=== PATIENT | male | born 1945 | race Caucasian/White ===

== ENCOUNTER 2017-10-04 11:52 | Outpatient (CLI) | payer MEDICARE, OTHER ==
--- NOTE | 2017-10-04 14:54 | CT ---
CT BRAIN WITH AND WITHOUT CONTRAST: 10/04/2017 HISTORY: A 71-year-old male with C34.2 malignant neoplasm of middle lobe, bronchus lung, stage IV. Evaluation for brain metastases. TECHNIQUE: Precontrast scan of brain IV injection iodinated contrast media: 70 mL of Isovue 370 Postcontrast scan of brain FINDINGS: The ventricles are normal in size and configuration. There is no midline shift or any other mass eff ect. There is no evidence of acute intracranial hemorrhage, large cortical infarct, or extraaxial fl uid collection. The dailey matter /white matter differentiation is maintained. There is no abnormal e nhancement or mass. The calvarium is intact. The tympanomastoid cavities, and the upper portions of the paranasal sinuses included in these images, are grossly clear. IMPRESSION: Normal. tonja [] POS: TERI
[2017-10-04] MEDS ORDERED: Iopamidol 370 76% 100 ML VIAL ONE (17:05)
== END 2017-10-04 11:53 | disposition home or self-care (01) ==
LOC: CT 11:52
PROVIDERS: ATTEND Internal Medicine Medical Oncology
DX: C34.2 Malignant neoplasm of middle lobe, bronchus or lung (principal)
CPT/HCPCS: 70470

== ENCOUNTER 2017-10-13 12:30 | Outpatient (CLI) | payer MEDICARE, OTHER | END 2017-10-13 12:31 | disposition home or self-care (01) | LOC: BICRAD 12:30 | PROVIDERS: ATTEND Internal Medicine Medical Oncology | DX: C34.90 Malignant neoplasm of unspecified part of unspecified bronchus or lung (principal); J98.4 Other disorders of lung | CPT/HCPCS: 71020 ==

== ENCOUNTER 2017-10-28 08:46 | Outpatient (CLI) | payer MEDICARE, OTHER ==
--- NOTE | 2017-10-29 08:48 | PET ---
PET CT: HISTORY: 71-year-old male with lung cancer. Exam requested for initial staging. TECHNIQUE: PET scanning with CT attenuation correction was performed from the base of the brain through the prox imal thighs following the intravenous administration of 8.5 mCi [id number] in the right antecubital chucho a. Imaging performed with an uptake interval of 46 minutes. FINDINGS: Correlation is made with CT of chest, abdomen, and pelvis dated 09/23/17 from [facility]. Hypermetabolic lymph nodes are seen in the mediastinum with a maximum SUV of 3.4 in the subcarinal re gion, 3.0 in the right hilum, and 3.6 in the right supraclavicular lymph node. Hypermetabolic activit y is seen in the periportal lymph nodes with a SUV of 4.5. Numerous hypermetabolic liver lesions are seen with a maximum SUV of 17.7 in the anterior segment of the right lobe, 16.7 in the posterior segment of the right lobe, and 18.3 in the left lobe of the rosemary er. There are multiple hypermetabolic osseous lesions with a SUV of 5.8 in the left sacral ala, 4.2 at T9 , 2.9 at T3, 3.0 at T1, and 3.7 in the left scapula. No hypermetabolic adrenal lesions are seen. The CT scan used for attenuation correction demonstrates a tiny right pleural effusion. No ascites is noted. A tiny, nonobstructing left renal calculus is present. There is sigmoid diverticulosis. IMPRESSION: Findings are consistent with extensive metastatic disease. POS: TERI
== END 2017-10-28 08:47 | disposition home or self-care (01) ==
LOC: PET 08:46
PROVIDERS: ATTEND Internal Medicine Medical Oncology
DX: C34.2 Malignant neoplasm of middle lobe, bronchus or lung (principal)
CPT/HCPCS: 78815; A9552

== ENCOUNTER 2017-12-07 05:55 | Day surgery (SDC) | payer MEDICARE, OTHER ==
[2017-12-06 12:35] VITALS: BMI 26.7
[2017-12-07] MEDS ORDERED: CEFAZOLIN/Water 2 GM/20 ML SYRINGE ONE (06:16)
[2017-12-07] MEDS ORDERED: Lidocaine 2% w/Epinephrine 1:200K 20 ML VIAL ONE (06:50)
[2017-12-07] MEDS ORDERED: Bupivacaine 0.25% HCL 30 ML VIAL ONE (06:50)
[2017-12-07] MEDS ORDERED: Heparin 0 ML ONE (06:50)
[2017-12-07] MEDS ORDERED: Fentanyl 100 MCG/2 ML VIAL ONE (07:07)
[2017-12-07] MEDS ORDERED: Propofol 500 MG/50 ML VIAL ONE (07:15)
--- NOTE | 2017-12-07 08:47 | OP ---
DATE OF PROCEDURE: 12/07/2017 PREOPERATIVE DIAGNOSIS: Lung cancer. POSTOPERATIVE DIAGNOSIS: Lung cancer. PROCEDURE: Tunneled central line with subcutaneous port (MediPort), CT injectable. SURGEON: Forest Neves M.D. ANESTHESIA: TIVA, local. ESTIMATED BLOOD LOSS: Minimal. COMPLICATIONS: None. SPECIMEN: None. FINDINGS: Tip of catheter at atriocaval junction. TECHNIQUE: The patient was taken to the operating room and placed supine on the operating room table . After sedation was obtained, bilateral neck and chest was shaved, prepped and draped in a sterile fashion. Local anesthetic infiltrated over the right internal jugular vein and in the right upper ch est. Intrajugular vein cannulated using a 22-gauge finder needle followed by a Seldinger needle. Wi re was passed into the superior vena cava under fluoroscopic guidance. A jose was made at the wire e ntrance site. A separate 3-cm incision was made in the right upper chest. Subcutaneous pocket made below the lower incision. Tubing for the MediPort tunneled from the inferior to superior incision. Introducer sheath was placed over the wire into the superior vena cava under fluoroscopic guidance. The dilator and wire were removed. The end of the catheter is spread into the sheath as the sheath i s peeled away. The tip of the catheter was at the atriocaval junction. The MediPort tubing is cut t o fit the MediPort at the lower incision, connected to the MediPort. The MediPort sewn to the chest wall in the subcutaneous pocket using Prolene. The MediPort flushes and draws blood without difficul ty. It is flushed with a heparin saline. The wound was irrigated and closed using 3-0 Monocryl, 4-0 Monocryl, and Dermabond. The patient went to recovery in stable condition. All instrument counts, needle counts, and lap counts were correct.
--- NOTE | 2017-12-07 08:50 | RAD ---
RADIOGRAPH CHEST 1 VIEW: Date: 12-07-17 Time: 8:26 a.m. HISTORY: 71-year-old male status post Mediport placement. COMPARISON: None. FINDINGS: There is a right IJ Mediport with distal tip overlying the mid to lower portion of the SVC. No eviden ce of pneumothorax. There is a dense, moderately large opacity in the right mid-lower lung field. No cardiomegaly or pulmonary vasculature engorgement. No pulmonary edema. Lateral costophrenic angles ar e sharp. No pneumothorax. ACDF hardware in the cervical spine. Sternotomy wires. Left subclavian pace maker. IMPRESSION: 1. Right internal jugular implantable vascular access port without pneumothorax. 2. Dense pulmonary opacity in the right mid/lower lung field. 3. Pacemaker. 4. Status post coronary artery bypass graft surgery is evidence of chronic atherosclerotic disease. SWATHI POS: TERI
--- NOTE | 2017-12-07 15:59 | EKG ---
Test Reason : PREOP Blood Pressure : / mmHG Vent. Rate : 070 BPM Atrial Rate : 070 BPM P-R Int : 150 ms QRS Dur : 078 ms QT Int : 402 ms P-R-T Axes : 034 004 030 degrees QTc Int : 434 ms Electronic atrial pacemaker Nonspecific T wave abnormality Abnormal ECG No previous ECGs available Confirmed by SARITA DURAN ([id number]) on 12/07/2017 3:58:06 PM Referred By: MARVIN Confirmed By:SARITA DURAN
[2017-12-07] MEDS ORDERED: Ondansetron HCl/PF 4 MG/2 ML Vial ONE (16:30)
[2017-12-07] MEDS ORDERED: PHENYLEPHRINE-NS 100 MCG/ML 10 ML SYRINGE ONE (16:30)
== END 2017-12-07 09:28 | disposition home or self-care (01) ==
LOC: SDC 05:55
PROVIDERS: ATTEND Surgery
PROC: 0JH Subcutaneous Tissue and Fascia, Insertion (ICD-10-PCS; principal; 2017-12-07)
DX: C34.90 Malignant neoplasm of unspecified part of unspecified bronchus or lung (principal); I10 Essential (primary) hypertension; E78.5 Hyperlipidemia, unspecified; I25.10 Atherosclerotic heart disease of native coronary artery without angina pectoris; I48.91 Unspecified atrial fibrillation; G47.30 Sleep apnea, unspecified; D64.9 Anemia, unspecified; C78.7 Secondary malignant neoplasm of liver and intrahepatic bile duct; C79.51 Secondary malignant neoplasm of bone; C79.89 Secondary malignant neoplasm of other specified sites; C77.1 Secondary and unspecified malignant neoplasm of intrathoracic lymph nodes; Z98.1 Arthrodesis status; Z95.1 Presence of aortocoronary bypass graft; Z95.0 Presence of cardiac pacemaker; Z96.1 Presence of intraocular lens; Z90.49 Acquired absence of other specified parts of digestive tract; Z98.890 Other specified postprocedural states; Z87.01 Personal history of pneumonia (recurrent); Z87.891 Personal history of nicotine dependence
CPT/HCPCS: 71045; 93005; 93010; C1788; J1642; J1644; J2405; J2704; J3010; S0020

== ENCOUNTER 2017-12-13 17:33 | Inpatient (IN) | payer MEDICARE, OTHER ==
[2017-12-13 18:11] LABS: Hemoglobin 9.8 g/dL (14.0-18.0); Mean Corpuscular HGB CONC 30.8 g/dL (32.0-36.0); Mean Corpuscular Hemoglobin 26.3 pg (27.0-31.0); Mean Corpuscular Volume 85.3 fl (80.0-94.0); Mean Platelet Volume 6.6 fL (7.4-10.4); Platelet Count 323 thou/uL (130-400); RBC Distribution Width 21.9 % (11.5-14.5); Red Blood Cell (RBC) Count 3.72 mill/uL (4.70-6.10); White Blood Cell (WBC) Count 17.6 thou/uL (4.8-10.8)
[2017-12-13 18:29] LABS: ALT (SGPT) 20 U/L (8-55); AST (SGOT) 24 U/L (5-34); Albumin 3.2 g/dL (3.4-4.8); Alkaline Phosphatase 208 U/L (40-150); Anion Gap 15 mmol/L (10-20); BUN (Urea Nitrogen) 40 mg/dL (8.4-25.7); Bilirubin, Total 0.5 mg/dL (0.2-1.2); Calc. Creatinine Clearance 0 mL/min (70-130); Calcium 9.1 mg/dL (7.8-10.44); Carbon Dioxide 23 mmol/L (23-31); Chloride 104 mmol/L (98-107); Estimated GFR-MDRD 42; Globulin 3.8 g/dL (2.4-3.5); Glucose 65 mg/dL (80-115); Potassium 4.6 mmol/L (3.5-5.1); Sodium 137 mmol/L (136-145)
[2017-12-13 18:30] LABS: Anisocytosis MODERATE=16-30 cells (100X) (0-5/hpf); Band 18 % (5-11); Eosinophils 20 % (0-10); Hypochromia SLIGHT = 6-15 cells (100X) (0-5/hpf); Lymphocytes 17 % (21-51); MDiff Complete? YES; Monocytes 1 % (0-10); Neutrophil 40 % (42-75); Ovalocytes SLIGHT = 2-5 cells (100X) (0-1/hpf); PLT Morphology Comment Appears Adequate; Polychromasia SLIGHT = 2-3 cells (100X) (0-2/hpf); Reactive Lymphocytes 3 % (0-10); Toxic Granulation SLIGHT; Vacuoles SLIGHT
[2017-12-13] MEDS ORDERED: Piperacillin/Tazobactam 3.375 GM in Sodium Chloride 0.9% 100 ML IVPB SCH (18:45)
--- NOTE | 2017-12-13 19:01 | RAD ---
CHEST ONE VIEW: History: Chest Pain. Sepsis. Comparison: 12-07-17 FINDINGS: Cardiac silhouette is magnified by projection. Pulmonary vasculature is unremarkable. Lungs are hyper inflated. Mediastinum is midline with aortic calcification, post-operative changes, a dual-lead left subclavian cardiac electronic device and a right internal jugular Mediport. Dense parenchymal opacity at the right lower lobe is unchanged in appearance from the previous exam. IMPRESSION: 1. Right lower lobe infiltrate is stable. Other findings are also stable. POS: TERI
[2017-12-13 20:17] LABS: Bilirubin Negative (Negative); Blood, Urine Negative (Negative); Clarity CLOUDY (Clear); Glucose, Urine (Dipstick) Negative (Negative); Leukocyte Negative (Negative); Nitrite Negative (Negative); Protein, Urine (Dipstick) Trace mg/dL (Neg-Trace); Specific Gravity, Urine 1.026 (1.002-1.036); Urobilinogen 0.2 mg/dL (0.2-1.0)
[2017-12-13] MEDS ORDERED: Guaifenesin DM 100-10/5 ML UDCUP PO PRN (22:08)
[2017-12-13] MEDS ORDERED: Fleet Enema 133 ML BOT PR PRN (22:08)
[2017-12-13] MEDS ORDERED: Milk Of Magnesia 30 ML UDCUP PO PRN (22:08)
[2017-12-13] MEDS ORDERED: Ondansetron HCl/PF 4 MG/2 ML Vial IVP PRN (22:08)
[2017-12-13] MEDS ORDERED: HYDROcodone/Acetaminophen 5/325 mg Tablet PO PRN (22:08)
[2017-12-13] MEDS ORDERED: Acetaminophen 325 MG TAB PO PRN (22:08)
[2017-12-13] MEDS ORDERED: Albuterol Sulfate 2.5 mg/3 ml Neb NEB PRN (22:11)
[2017-12-13 22:29] LABS: Lactic Acid 0.9 mmol/L (0.5-2.2)
[2017-12-14 02:55] VITALS: BMI 25.8
[2017-12-14] MEDS ORDERED: Ondansetron ODT 8 MG TAB PO PRN (04:59)
[2017-12-14] MEDS ORDERED: HYDROcodone/Acetaminophen 10/325 mg Tablet PO PRN (04:59)
[2017-12-14] MEDS ORDERED: Naproxen 500 MG TAB PO PRN (04:59)
[2017-12-14] MEDS ORDERED: Nitroglycerin 0.4 MG TAB (25 Tab Bottle) SL PRN (04:59)
[2017-12-14 06:41] LABS: ALT (SGPT) 18 U/L (8-55); AST (SGOT) 21 U/L (5-34); Albumin 2.7 g/dL (3.4-4.8); Alkaline Phosphatase 178 U/L (40-150); Anion Gap 11 mmol/L (10-20); BUN (Urea Nitrogen) 35 mg/dL (8.4-25.7); Bilirubin, Total 0.3 mg/dL (0.2-1.2); Calc. Creatinine Clearance 51 mL/min (70-130); Calcium 8.6 mg/dL (7.8-10.44); Carbon Dioxide 23 mmol/L (23-31); Chloride 107 mmol/L (98-107); Estimated GFR-MDRD 44; Globulin 3.2 g/dL (2.4-3.5); Glucose 93 mg/dL (83-110); Protein, Total 5.9 g/dL (5.8-8.1); Sodium 137 mmol/L (136-145)
[2017-12-14 06:44] LABS: Hemoglobin 8.2 g/dL (14.0-18.0); Mean Corpuscular HGB CONC 30.6 g/dL (32.0-36.0); Mean Platelet Volume 6.8 fL (7.4-10.4); Platelet Count 272 thou/uL (130-400); Red Blood Cell (RBC) Count 3.13 mill/uL (4.70-6.10); White Blood Cell (WBC) Count 20.2 thou/uL (4.8-10.8)
[2017-12-14 06:45] LABS: Band 8 % (5-11); Eosinophils 20 % (0-10); Hypochromia SLIGHT = 6-15 cells (100X) (0-5/hpf); Lymphocytes 24 % (21-51); MDiff Complete? YES; Microcytosis SLIGHT = 6-15 cells (100X) (0-5/hpf); Monocytes 3 % (0-10); Neutrophil 43 % (42-75); PLT Morphology Comment Appears Adequate
--- NOTE | 2017-12-14 06:49 | HP ---
PRIMARY CARE PHYSICIAN: Jasvir Nicholas MD PRESENTING COMPLAINT: Shortness of breath. HISTORY OF PRESENT ILLNESS: A 71-year-old male with a history of lung cancer, CAD status post CABG, status post pacemaker placement, and atrial fibrillation who presented to the emergency room today af ter he developed fevers, chills, shortness of breath just after he finished his dose of chemotherapy today, patient was at the infusion center getting Opdivo and he reports that immediately after his se ssion after and after the nurse discontinued the port and flushed it, he developed fever, chills, and rigors as well as shortness of breath. He was given Tylenol and Benadryl immediately. There was no chest pain, palpitations, nausea, vomiting, or diarrhea. He received Opdivo about 2 weeks ago and t olerated it well. His MediPort was placed about a week ago as well. His reported that they wer e told shortness of breath is the side effect of the medication. He was also diagnosed with pneumoni a in September. Around the same time, he was diagnosed with his lung cancer. PAST MEDICAL HISTORY: Non-small cell cancer of the lungs, CAD, atrial fibrillation, status post pace maker. PAST SURGICAL HISTORY: Cholecystectomy, CABG, vertebral fusion, and rotator cuff surgery. FAMILY HISTORY: Reviewed and noncontributory. SOCIAL HISTORY: Former smoker, does not drink alcohol, or use illicit drugs. ALLERGIES: None. CODE STATUS: FULL CODE. REVIEW OF SYSTEMS: Constitutional: Fever or chills. HEENT: Negative. Cardiovascular: Negative. Respiratory: Shortness of breath. GI: Negative. Musculoskeletal: Negative. Skin: Negative. N eurologic: Negative. Endocrine: Negative. Hematological/lymph: Negative. Psychiatric: Negative . PHYSICAL EXAMINATION: VITAL SIGNS: At the emergency room, blood pressure 104/48, pulse 80, respiratory rate 20, oxygen sat uration 95% on 2 liters. CONSTITUTIONAL: Not in acute distress, is lying down comfortably in bed. HEENT: Normocephalic, atraumatic. Not pale, anicteric. PERRLA, EOMI. Moist mucous membranes. NECK: Supple, full range of movement. RESPIRATORY: Vesicular breath sounds bilaterally on 2 liters of oxygen via nasal cannula. No wheeze s or rales. CARDIOVASCULAR: Irregularly irregular rhythm, but regular rate. No murmurs, rubs, or gallops. ABDOMEN: Not tender, not distended. Bowel sounds positive. No organomegaly. MUSCULOSKELETAL: No skeletal abnormalities. NEUROLOGIC: Alert and well oriented to time, person, and place. No focal deficits. SKIN: Warm, dry, well-perfused. Right chest port in place. PSYCHIATRIC: Normal mood and affect. LABORATORY DATA: EKG paced rhythm. Chest x-ray right lower lobe infiltrates, which is stable. Ches t x-ray from 12/07/2017 that showed a dense pulmonary opacity in the right mid/lower lung field. WBC 17,600. Serum chemistry with BUN/creatinine of 40/1.63 which seems to be patient's baseline crea tinine. Initial lactic acid was 2.7, which reduced was 0.9 with hydration. Urinalysis was unremarka ble. Blood cultures were taken and is pending. ASSESSMENT AND PLAN: 1. Shortness of breath. This is likely a side effect of Opdivo as it has been shown to cause respir atory failure, pneumonitis, and navel pneumonia. He has an elevated WBC count and is currently requi ring oxygen supplementation. We will follow up blood cultures, placed on nebulizer therapy and broad spectrum antibiotics as a precaution. Will evaluate the patient in the morning. Discontinue antibi otics might then be considered. 2. Atrial fibrillation. He is currently rate controlled. For this, he takes apixaban, atenolol, an d digoxin. We will continue these medications as soon as they are confirmed. He is also on sotalol. 3. Hypertension. We will resume his home regimen gradually. He takes amlodipine, atenolol, and los andreia. 4. Coronary artery disease, status post CABG and pacemaker placement. He is currently chest pain fr ee. We will resume him on atorvastatin, digoxin, furosemide, losartan, and his p.r.n. nitroglycerin once they have been confirmed. 5. Non-small cell lung cancer to continue outpatient chemotherapy and follow up with Oncology.
[2017-12-14] MEDS: Piperacillin/Tazobactam 3.375 GM in Sodium Chloride 0.9% 100 ML IVPB SCH ×4 (07:27→23:29)
[2017-12-14] MEDS: Famotidine 20 MG TAB PO SCH ×2 (08:46→20:50)
[2017-12-14] MEDS: Losartan 25 MG TAB PO SCH (08:46)
[2017-12-14] MEDS: Fish Oil 1,000 MG CAP PO SCH ×2 (08:47→20:50)
[2017-12-14] MEDS: Atenolol 25 MG TAB PO SCH (08:47)
[2017-12-14] MEDS: Aspirin 81 mg Enteric Coated Tablet PO SCH (08:47)
[2017-12-14] MEDS: Digoxin 0.125 MG TAB PO SCH (08:48)
[2017-12-14] MEDS ORDERED: Furosemide 40 MG TAB PO SCH (09:00)
[2017-12-14] MEDS: Modafinil 100 MG TAB PO SCH (09:58)
[2017-12-14] MEDS: Stress 600 With Zinc 1 TAB PO SCH (09:58)
[2017-12-14] MEDS: Vancomycin HCl 1.5 GM in Sodium Chloride 0.9% 250 ML 300 ML IVPB SCH (12:25)
--- NOTE | 2017-12-14 13:50 | PDOC.PN ---
- Subjective Encounter Start Date: 12/14/17 Encounter Start Time: 12:40 -: old records requested/rev Pt seen and examined, chart reviewed in its entirety, this is my first visit with this patient No F/C, no N/V/D/C, no CP, no SOB Pt feeling much better, no acute events overnight, no new complaints. Labs and findings discussed with pt and at the bedside 10 point ROS performed and neg for all systems except as per HPI - Objective MAR Reviewed: Yes Vital Signs & Weight: Vital Signs (12 hours) Temp Pulse Resp BP BP Pulse Ox 12/14/17 08:48 70 12/14/17 08:47 70 129/63 12/14/17 08:05 98.4 F 70 18 129/63 97 12/14/17 08:00 98.4 F 70 18 98 12/14/17 04:00 98.8 F 70 18 128/66 97 Weight Weight 185 lb 3.013 oz I&O: 12/13/17 12/14/17 12/15/17 06:59 06:59 06:59 Intake Total 480 240 Balance 480 240 Result Diagrams: 12/14/17 06:15 12/14/17 03:30 Additional Labs: Accuchecks 12/13/17 20:44 POC Glucose 112 H Radiology Reviewed by me: Yes EKG Reviewed by me: Yes Phys Exam - Physical Examination Constitutional: NAD HEENT: PERRLA, moist MMs, sclera anicteric, oral pharynx no lesions Neck: no nodes, no JVD, supple, full ROM Respiratory: no wheezing, no rales, no rhonchi, clear to auscultation bilateral Cardiovascular: RRR, no significant murmur, no rub Gastrointestinal: soft, non-tender, no distention, positive bowel sounds Musculoskeletal: no edema, pulses present Neurological: non-focal, normal sensation, moves all 4 limbs Lymphatic: no nodes Psychiatric: normal affect, A&O x 3 Skin: no rash, normal turgor, cap refill <2 seconds Deviation from normal: PAC site C/D/I Dx/Plan (1) Lung cancer Code(s): C34.90 - MALIGNANT NEOPLASM OF UNSP PART OF UNSP BRONCHUS OR LUNG Status: Acute Qualifiers: Laterality: unspecified laterality Lung location: unspecified part of lung Qualified Code(s): C34.90 - Malignant neoplasm of unspecified part of unspecified bronchus or lung (2) Effect of chemotherapy Code(s): T45.1X5A - ADVERSE EFFECT OF ANTINEOPLASTIC AND IMMUNOSUP DRUGS, INIT Status: Acute Qualifiers: Encounter type: initial encounter Qualified Code(s): T45.1X5A - Adverse effect of antineoplastic and immunosuppressive drugs, initial encounter Comment: fevers, chills, SOB at conclusion of second dose of Opdivo. Onc to see (3) Sepsis Code(s): A41.9 - SEPSIS, UNSPECIFIED ORGANISM Status: Acute Qualifiers: Sepsis type: sepsis due to unspecified organism Qualified Code(s): A41.9 - Sepsis, unspecified organism Comment: unsure if infectious or adverse reaction to Chemo agent (4) Dyspnea Code(s): R06.00 - DYSPNEA, UNSPECIFIED Status: Acute Qualifiers: Dyspnea type: shortness of breath Qualified Code(s): R06.02 - Shortness of breath; R06.00 - Dyspnea, unspecified; R06.01 - Orthopnea (5) CKD (chronic kidney disease) stage 3, GFR 30-59 ml/min Code(s): N18.3 - CHRONIC KIDNEY DISEASE, STAGE 3 (MODERATE) Status: Chronic (6) CAD (coronary artery disease) Code(s): I25.10 - ATHSCL HEART DISEASE OF [place] CORONARY ARTERY W/O ANG PCTRS Status: Chronic Qualifiers: Coronary Disease-Associated Artery/Lesion type: unspecified vessel or lesion type [place] vs. transplanted heart: [place] heart Associated angina: without angina Qualified Code(s): I25.10 - Atherosclerotic heart disease of [place] coronary artery without angina pectoris - Plan * .
--- NOTE | 2017-12-14 18:29 | CON ---
DATE OF CONSULTATION: 12/14/2017 REASON FOR CONSULTATION: Lung cancer. HISTORY OF PRESENT ILLNESS: Mr. Estevez is a pleasant 72-year-old gentleman with adenocarcinoma with li duarte lung origin. He has mets to the liver, mediastinum and lymph nodes. He recently progressed on carboplatin and Alimta. Yesterday in the clinic, he was receiving his second dose of immunotherapy w ith Opdivo. Towards the end of administration, he began to have rigors and shortness of breath. He was given Tylenol and Benadryl, but did not improve, so he was brought to the emergency room for furt her evaluation. He did receive a first dose of Opdivo several weeks ago without any complication. H e states over the last few days prior to yesterday he was having some increased shortness of breath, but denies any fever, chills, or night sweats. Once in the ER, his symptoms resolved and have not re turned. He has been pancultured and started on empiric antibiotics and IV fluids. PAST MEDICAL HISTORY: 1. Adenocarcinoma. 2. Hyperlipidemia. 3. Hypertension. 4. Atherosclerotic heart disease. 5. Arthritis. PAST SURGICAL HISTORY: 1. Triple bypass surgery. 2. Cervical fusion. 3. Pacemaker. 4. Rotator cuff repair. 5. Cholecystectomy. 6. Back ablation. ALLERGIES: No known drug allergies. HOME MEDICATIONS: 1. Amlodipine 2.5 mg daily. 2. Aspirin 81 mg daily. 3. Atenolol 25 mg daily. 4. Atorvastatin 40 mg daily. 5. Digoxin 125 mcg daily. 6. Fenofibrate 145 mg daily. 7. Lasix 40 mg daily. 8. Skytop p.r.n. 9. Losartan 25 mg daily. 10. Modafinil 200 mg daily. 11. Lovaza 1 capsule daily. 12. Sotalol 80 mg daily. 13. B complex daily. FAMILY HISTORY: Mother had colon cancer. SOCIAL HISTORY: , has 2 children, lives with his spouse. He is a 25 pack per year smoker. N o alcohol or illicit drug use. REVIEW OF SYSTEMS: Twelve point review of systems is negative except for noted in HPI. PHYSICAL EXAMINATION: VITAL SIGNS: Temperature is 98.4, pulse is 70, respiratory rate is 18, and blood pressure is 129/63. He is 97% on 2 liters. GENERAL: Well-developed, well-nourished male in no acute distress. HEENT: Normocephalic, atraumatic. Pupils are equal and reactive to light. NECK: Supple. CARDIOVASCULAR: Regular rate and rhythm. LUNGS: His lungs are clear throughout. ABDOMEN: Soft, nontender, bowel sounds are positive. EXTREMITIES: No clubbing, cyanosis or edema. SKIN: No rash. HEMATOLOGIC: No petechia or purpura. NEUROLOGIC: Nonfocal. PSYCHIATRIC: The patient is alert, oriented and appropriate. PERTINENT LABORATORY AND X-RAYS: Current WBCs are 20.2, hemoglobin 8.2, hematocrit 26.6, platelet co unt is 272,000, 43% neutrophils, 8% bands, 24% lymphocytes, 20% eosinophils. Sodium is 137, potassiu m is 4.0, chloride is 107, CO2 is 23, BUN is 35, and creatinine 1.57. Lactic acid is 0.9, calcium is 8.6, total bilirubin is 0.3, AST is 21, ALT is 18, alkaline phosphatase is 178, BNP is 156, serum to marko protein is 5.9, albumin is 2.7, and globulin is 3.9. Urine was negative for bacteria. Chest x-r ay showed a right lower lobe infiltrate. ASSESSMENT: 1. Adenocarcinoma with lung primary, status post cycle 2 of Opdivo. 2. Rigors and chills, allergic reaction versus drug reaction. DISCUSSION: The patient has recovered from his episode from yesterday. He has been pancultured and they are currently pending. It is unclear if this was a drug reaction or the patient had infection a nd reacted to stimulation of his immune system. Regardless, he is feeling better now, I will plan to wean O2. Continue antibiotics and hopefully home in the next 24 hours. He will follow up with Dr. Llanes to discuss likely continuation of Opdivo in the outpatient setting. Thank you for this consult.
[2017-12-14] MEDS ORDERED: diphenhydrAMINE 25 MG CAP PO PRN (19:43)
[2017-12-14] MEDS ORDERED: Fenofibrate Nanocrystallized 145 MG TAB PO SCH (21:00)
[2017-12-14] MEDS ORDERED: Atorvastatin Calcium 40 MG TAB PO SCH (21:00)
[2017-12-15] MEDS: Piperacillin/Tazobactam 3.375 GM in Sodium Chloride 0.9% 100 ML IVPB SCH ×2 (05:35→13:50)
[2017-12-15 06:22] LABS: ALT (SGPT) 15 U/L (8-55); AST (SGOT) 17 U/L (5-34); Albumin 2.7 g/dL (3.4-4.8); Alkaline Phosphatase 159 U/L (40-150); Anion Gap 10 mmol/L (10-20); BUN (Urea Nitrogen) 26 mg/dL (8.4-25.7); Bilirubin, Total 0.4 mg/dL (0.2-1.2); Calc. Creatinine Clearance 52 mL/min (70-130); Calcium 8.7 mg/dL (7.8-10.44); Carbon Dioxide 24 mmol/L (23-31); Chloride 108 mmol/L (98-107); Estimated GFR-MDRD 44; Globulin 3.1 g/dL (2.4-3.5); Glucose 97 mg/dL (83-110); Magnesium 1.8 mg/dL (1.6-2.6); Potassium 4.1 mmol/L (3.5-5.1); Protein, Total 5.8 g/dL (5.8-8.1); Sodium 138 mmol/L (136-145)
[2017-12-15 07:01] LABS: #Basophils 0.1 thou/uL (0.0-0.2); #Eosinphils 4.3 thou/uL (0.0-0.7); #Lymphocytes 3.3 thou/uL (1.20-3.40); #Neutrophils 11.7 thou/uL (1.40-6.50); %Basophils 0.7 % (0.0-1.0); %Lymphocytes 16.2 % (21.0-51.0); %Monocytes 5.1 % (0.0-10.0); %Neutrophils 57.1 % (42.0-75.0); Band 11 % (5-11); Eosinophils 14 % (0-10); Lymphocytes 18 % (21-51); MDiff Complete? YES; Mean Corpuscular HGB CONC 31.3 g/dL (32.0-36.0); Mean Corpuscular Hemoglobin 26.8 pg (27.0-31.0); Mean Corpuscular Volume 85.5 fl (80.0-94.0); Mean Platelet Volume 6.7 fL (7.4-10.4); Monocytes 4 % (0-10); Neutrophil 53 % (42-75); PLT Morphology Comment Appears Adequate; Platelet Count 305 thou/uL (130-400); RBC Distribution Width 21.6 % (11.5-14.5); Red Blood Cell (RBC) Count 2.98 mill/uL (4.70-6.10); White Blood Cell (WBC) Count 20.5 thou/uL (4.8-10.8)
[2017-12-15] MEDS: Digoxin 0.125 MG TAB PO SCH (08:48)
[2017-12-15] MEDS: Losartan 25 MG TAB PO SCH (08:48)
[2017-12-15] MEDS: Fish Oil 1,000 MG CAP PO SCH (08:48)
[2017-12-15] MEDS: Famotidine 20 MG TAB PO SCH (08:49)
[2017-12-15] MEDS: Aspirin 81 mg Enteric Coated Tablet PO SCH (08:49)
[2017-12-15] MEDS: Atenolol 25 MG TAB PO SCH (08:49)
[2017-12-15] MEDS ORDERED: Prevnar 13-Val Conj/PF 0.5 ML SYRINGE IM ONE (09:00)
[2017-12-15] MEDS: Stress 600 With Zinc 1 TAB PO SCH (09:24)
[2017-12-15] MEDS: Modafinil 100 MG TAB PO SCH (10:46)
[2017-12-15] MEDS ORDERED: predniSONE 20 MG TAB PO SCH (13:15)
[2017-12-15] MEDS: Vancomycin HCl 1.5 GM in Sodium Chloride 0.9% 250 ML 300 ML IVPB SCH (14:38)
[2017-12-15 16:32] VITALS: BP 154/74; TEMP 98.6
--- NOTE | 2017-12-16 14:05 | DIS ---
DATE OF ADMISSION: 12/13/2017 DATE OF DISCHARGE: 12/15/2017 DISCHARGE DIAGNOSES: 1. Adverse effect to chemotherapy. 2. Malignant neoplasm of the lung. 3. Systemic inflammatory response syndrome. 4. Dyspnea. 5. Chronic kidney disease stage 3. 6. History of coronary artery disease, without angina. CONSULTATION: Oncology, Ms. Marge Vasquez. PROCEDURES: None. HOSPITAL COURSE: Mr. Estevez is a pleasant 72-year-old male with history of lung cancer, coronary arter y disease, status post coronary bypass grafting and pacemaker placement for chronic atrial fibrillati on, who came to the Emergency Department on the day of admission after developing fevers, chills, and shortness of breath while finishing his dose of chemotherapy. The patient was getting Opdivo and im mediately after completion of his dose, he developed the above symptoms. He was given Tylenol and Be nadryl immediately. He had no chest pain, palpitations, nausea, vomiting or diarrhea, and had done w ell Opdivo about 2 weeks prior. He was sent to the Emergency Department for further workup and evalu ation. There, chest x-ray showed dense pulmonary opacity consistent with his prior lung cancer and a right l ower lobe infiltrate. White blood cell count was elevated. Creatinine was 1.63. Initial lactic aci d was 2.7. We were subsequently called for admit. HOSPITAL COURSE: The patient was seen and examined by Dr. Yip and admitted inpatient. He was p laced in the Oncology green. The patient initially started on broad-spectrum antibiotics with Zosyn. Blood cultures were obtained and he was watched overnight. Overnight night, 12/14-12/15, the patient improved. I took over that day and on my evaluation, the p atient was feeling much better, had no new complaints. His white blood cell count was up to 20.2 due to steroids he received. Creatinine slightly improved down to 1.57 and exam was unchanged. Oncology has been consulted. The patient was seen by Ms. Vasquez and she evaluated and felt there was reaction to Opdivo. After a long discussion with the family, they agreed to proceed with the next d ose as scheduled and he is continued to be watched in the hospital. Overnight, 12/14-12/15, the patient remained afebrile. Laboratory evaluation shows white count stabl e at 20 secondary to steroids. He had no fever and after discussion, it was felt he was stable for d ischarge on steroid taper for outpatient followup. PHYSICAL EXAMINATION: The patient was seen and examined on the day of discharge. Discharge plan and disposition discussed with the patient and his family [id number] at the bedside. DISCHARGE MEDICATIONS: 1. Prednisone 40 mg every morning with breakfast for the next several days. Prescription sent. 2. Vitamin B 150 mg daily. 3. Hydrocodone p.r.n. 4. Sotalol b.i.d. 5. Atorvastatin 40 mg p.o. at bedtime. 6. Atenolol 25 mg p.o. q.a.m. 7. Zofran 4 mg as needed for nausea and vomiting. 8. Lasix 40 mg every other day. 9. Nitroglycerin 1 tab sublingual as needed. 10. Digoxin 0.125 mg p.o. q.a.m. 11. Amlodipine daily. 12. Modafinil 100 mg daily. 13. Fenofibrate 145 mg at bedtime. 14. Losartan 25 mg p.o. q.a.m. 15. Naproxen 500 mg p.o. b.i.d. p.r.n. headache, aches or pains. 16. Aspirin 81 mg daily. 17. Ellery 3 fatty acids 1 gram daily. DISCHARGE ACTIVITY: Per Cardiopulmonary limits. DISCHARGE DIET: Heart healthy recommended. DISCHARGE CONDITION: Stable. DISPOSITION: Being discharged home via private vehicle. FOLLOWUP APPOINTMENTS: 1. Primary care physician, Dr. Jasvir Nicholas. 2. Oncologist, Dr. Llanes.
--- NOTE | 2017-12-18 14:30 | EKG ---
Test Reason : MED RXN Blood Pressure : / mmHG Vent. Rate : 070 BPM Atrial Rate : 070 BPM P-R Int : 138 ms QRS Dur : 068 ms QT Int : 394 ms P-R-T Axes : 031 000 005 degrees QTc Int : 425 ms Electronic atrial pacemaker Nonspecific T wave abnormality Abnormal ECG Confirmed by COLLINS TOWNSEND, DANGELO ([id number]), video news editor ROSALIE PEDROZA ([id number]) on 12/18/2017 2:30:19 PM Referred By: Confirmed By:DANGELO GUADALUPE MD
--- NOTE | 2018-01-03 16:58 | PQF ---
SHAYE WOOTENSHEMAR [id number] [id number] CLINICAL DOCUMENTATION CLARIFICATION FORM: POST DISCHARGE Addendum to original discharge summary date: ____ Late entry note date: __ DATE: 01/03/18 ATTN: DR VILLASEÑOR Please exercise your independent, professional judgment in responding to the clarification form. Clinical indicators are provided on the bottom of this form for your review Please check appropriate box(es): [ ] Sepsis due to: (Pna, UTI, gangrenous gall bladder, etc.) Due to: [ ] Device (please specify) [ ] Implant [ ] Graft [ ] Infusion [ x ] SIRS due to non-infectious process (please specify etiology) [ x ] with organ dysfunction [ ] without organ dysfunction [ ] Severe sepsis with acute organ dysfunction of: (Examples: respiratory failure, encephalopathy, acute kidney failure, other) [ ] Septic Shock [ ] Localized infection without sepsis [ ] Other diagnosis [ ] Unable to determine In addition, please specify: Present on Admission (POA): [ x ] Yes [ ] No [ ] Unable to determine For continuity of documentation, please document condition throughout progress notes and discharge summary. Thank You. CLINICAL INDICATORS - SIGNS / SYMPTOMS / LABS shortness of breath requiring oxygen WBC count 17,600 RISK FACTORS LUNG CANCER Immunosuppression TREATMENTS: Initiation Sepsis Protocol IV antibiotics - broad spectrum IV Fluids Documentation of Sepsis vs adverse effect of chemotherapy. Patient was receiving his second dose of Opdivo and began having SOB and rigors. (This form is maintained as a part of the permanent medical record) 2014 [employer], [employer] All Rights Reserved [email or web address] [phone] [email or web address]
--- NOTE | 2018-01-03 17:02 | PQF ---
JESHEMAR DESIR [id number] CLINICAL DOCUMENTATION CLARIFICATION FORM: POST DISCHARGE Addendum to original discharge summary date: ____ Late entry note date: __ JESHAYE LAMBSAMANTHA [id number] PILAR FOWLER MD PLEASE DOCUMENT YOUR RESPONSE BELOW PLEASE FAX RESPONSE BACK TO [phone] YOUR INPUT IS NEEDED TO CORRECTLY CODE A DIAGNOSIS FOR YOUR PATIENT. DATE: 01/03/18 ATTN: DR VILLASEÑOR Please exercise your independent, professional judgment in responding to the clarification form. Clinical indicators are provided on the bottom of this form for your review Please check appropriate box(s) to clarify if the following diagnosis has been ruled in or ruled out: ALLERGIC REACTION TO CHEMOTHERAPY (CDI/Coding list diagnosis here) [ ] Ruled in diagnosis [ ] Continue to treat [ ] Resolved [ ] Ruled out diagnosis [ ] Cannot rule out diagnosis [ x ] Other diagnosis __Adverse reaction, side effect of chemotherapy [ ] Unable to determine In addition, please specify: Present on Admission (POA): [ x ] Yes [ ] No [ ] Unable to determine For continuity of documentation, please document condition throughout progress notes and discharge summary. Thank You. CLINICAL INDICATORS - SIGNS / SYMPTOMS / LABS DURING SECOND INFUSION OF CHEMO PATIENT BEGAN HAVING SOB AND RIGORS RISK FACTORS LUNG CANCER (This form is maintained as a part of the permanent medical record) 2014 [email or web address]. All Rights Reserved Sulema [email or web address] [phone] [email or web address]
== END 2017-12-15 17:18 | disposition home or self-care (01) | DRG 204 ==
LOC: ERS 17:33 → ONC 20:18
PROVIDERS: ADMIT Internal Medicine; ATTEND Internal Medicine
DX: N18.3 Chronic kidney disease, stage 3 (moderate); Z87.891 Personal history of nicotine dependence; Z95.1 Presence of aortocoronary bypass graft; C34.90 Malignant neoplasm of unspecified part of unspecified bronchus or lung; C78.7 Secondary malignant neoplasm of liver and intrahepatic bile duct; Z95.828 Presence of other vascular implants and grafts; C34.2 Malignant neoplasm of middle lobe, bronchus or lung; Z92.21 Personal history of antineoplastic chemotherapy; Z79.82 Long term (current) use of aspirin; C78.1 Secondary malignant neoplasm of mediastinum; R65.11 Systemic inflammatory response syndrome (SIRS) of non-infectious origin with acute organ dysfunction; M19.90 Unspecified osteoarthritis, unspecified site; I25.10 Atherosclerotic heart disease of native coronary artery without angina pectoris; T45.1X5A Adverse effect of antineoplastic and immunosuppressive drugs, initial encounter; Z95.0 Presence of cardiac pacemaker; I48.2 Chronic atrial fibrillation; E78.5 Hyperlipidemia, unspecified; I12.9 Hypertensive chronic kidney disease with stage 1 through stage 4 chronic kidney disease, or unspecified chronic kidney disease; C77.9 Secondary and unspecified malignant neoplasm of lymph node, unspecified; R06.02 Shortness of breath; Z98.1 Arthrodesis status
CPT/HCPCS: 36415; 36416; 71045; 80053; 81003; 82248; 83605; 83615; 83735; 83880; 84100; 84550; 85025; 87040; 87086; 87804; 93005; 96365; 96367; A4216; J1642; J2543; J3370; J7050; J7506

== ENCOUNTER 2018-01-10 16:12 | Outpatient (CLI) | payer MEDICARE, OTHER | END 2018-01-10 16:13 | disposition home or self-care (01) | LOC: BICRAD 16:12 | PROVIDERS: ATTEND Internal Medicine Medical Oncology | DX: C34.2 Malignant neoplasm of middle lobe, bronchus or lung (principal) | CPT/HCPCS: 71046 ==

== ENCOUNTER 2018-01-24 13:02 | Outpatient (CLI) | payer MEDICARE, OTHER ==
[2018-01-24] MEDS ORDERED: Iopamidol 370 76% 100 ML VIAL ONE (14:49)
--- NOTE | 2018-01-24 16:10 | CT ---
CT OF THE BRAIN WITHOUT AND WITH CONTRAST: Date: 01/24/18 COMPARISON: 10/04/17. HISTORY: Stage IV carcinoma. Evaluate for brain metastasis. TECHNIQUE: Multiple contiguous axial images were obtained in a CT of the brain without and with contrast. FINDINGS: The brain is normal in morphology and attenuation without focal lesions or confluent areas of infarct ion. No abnormal enhancement is seen. There is no evidence of hydrocephalus, intracranial hemorrhage, or extra-axial fluid collection. The calvarium and overlying soft tissues are unremarkable. The visualized paranasal sinuses and masto id air cells are well aerated. IMPRESSION: No evidence of acute intracranial abnormality. POS: [facility]
--- NOTE | 2018-01-24 16:14 | CT ---
CT OF THE CHEST WITH CONTRAST: Date: 01/24/18 COMPARISON: None. HISTORY: Stage IV carcinoma. Evaluate for pulmonary metastasis. TECHNIQUE: Multiple contiguous axial images were obtained in a CT of the chest with contrast. Coronal reformats were performed. FINDINGS: There is atelectasis in the superior aspect of the right lower lobe. In the right hilar region, there is a mass-like region encasing the bronchi to the right lower lobe measuring up to 4.1 cm in size. T his likely is the cause for the atelectasis in the lower lobe. No other areas of atelectasis are seen . There is a 5-6 mm nodule in the left lower lobe on image 35 of 71. No other pulmonary nodules are s een. No pneumothorax or pleural effusion present. The heart is normal in size. Calcifications are seen in the coronary arteries. There is a pacemaker w ith its leads in the right atrium and ventricle. There is a [employer] with its tip in the superior mumtaz a cava. There are innumerable hypodensities scattered throughout the liver which represent hepatic metastatic lesions. The other visualized subdiaphragmatic structures are unremarkable. There are diffuse sclero tic lesions in the bones of the thorax, including the vertebral bodies and ribs, as well as the green um, and these represent osseous metastases. IMPRESSION: 1. Postobstructive atelectasis of the superior aspect of the right lower lobe secondary to a mass in the right hilar region encasing the bronchi to the right lower lobe. 2. Diffuse osseous metastatic disease. 3. Hepatic metastatic disease. POS: [facility]
== END 2018-01-24 13:03 | disposition home or self-care (01) ==
LOC: CT 13:02
PROVIDERS: ATTEND Internal Medicine Medical Oncology
DX: C79.51 Secondary malignant neoplasm of bone (principal); C34.2 Malignant neoplasm of middle lobe, bronchus or lung; C78.7 Secondary malignant neoplasm of liver and intrahepatic bile duct; J95.89 Other postprocedural complications and disorders of respiratory system, not elsewhere classified; J98.11 Atelectasis; R91.8 Other nonspecific abnormal finding of lung field
CPT/HCPCS: 70470; 71260; 82565